=== PATIENT | female | born 1980 | race Caucasian/White ===

== ENCOUNTER 2017-08-25 18:13 | Emergency (ER) | payer BC ==
[2017-08-25 18:42] VITALS: BP 147/80
[2017-08-25] MEDS ORDERED: Ibuprofen TAB* 400 MG PO ONE (20:07)
--- NOTE | 2017-08-25 20:07 | UC ---
Knee Pain HPI - HPI Summary HPI Summary: Pt presents to ED with ongoing, recurrent pain in right knee. Pt with a h/o arthritis in knee. Pt is followed by ortho. Last Penny pt had injection of cortisone and "gel" into knee. Pt states over last 2 days has increased pain in knee. No fever, chills. no erythema. No warmth. No new trauma, fall, or injury. pt states took Motrin 800mg this morning at 8am. Pt has not take any additional analgesia. pt has [place] at home, but has not taken it. Pt has a splint, not wearing. pt has not called orthopedist. pt has an ortho appy on . Pt's medications reviewed this visit - History of Current Complaint Chief Complaint: UCLowerExtremity Stated Complaint: RIGHT LEG PAIN Time Seen by Provider: 08/25/17 19:41 Hx Obtained From: Patient, Medical Records Hx Last Menstrual Period: 08/21/17 ?: No Onset/Duration: Gradual Onset, Lasting Days Pain Intensity: 10 - Allergies/Home Medications Allergies/Adverse Reactions: Allergies Allergy/AdvReac Type Severity Reaction Status Date / Time amoxicillin Allergy Intermediate Rash Verified 08/25/17 18:42 erythromycin base AdvReac Mild GI Upset Verified 08/25/17 18:42 PMH/Surg Hx/FS Hx/Imm Hx - Additional Past Medical History Additional PMH: osteoarthritis Previously Healthy: Yes - Surgical History Surgical History: None - Family History Known Family History: Positive: Hypertension, Diabetes - Social History Lives: With Family - boyfriend Alcohol Use: Occasionally Alcohol Amount: Once per month Substance Use Type: None Smoking Status (MU): Light Every Day Tobacco Smoker Type: Cigarettes Amount Used/How Often: 1/4 ppd Length of Time of Smoking/Using Tobacco: 8 YRS Have You Smoked in the Last Year: Yes Household Exposure Type: Cigarettes Review of Systems Constitutional: Negative Skin: Negative, Other - no erythema, edema Motor: Decreased ROM Neurological: Negative All Other Systems Reviewed And Are Negative: Yes Physical Exam Triage Information Reviewed: Yes Appearance: Well-Appearing, No Pain Distress, Well-Nourished Vital Signs: Initial Vital Signs Temp 97.7 F 08/25/17 18:32 Pulse 79 08/25/17 18:32 Resp 18 08/25/17 18:32 BP 147/80 08/25/17 18:32 Pulse Ox 100 08/25/17 18:32 Vital Signs Reviewed: Yes Eyes: Positive: Conjunctiva Clear ENT: Positive: Hearing grossly normal Neck exam: Normal Neck: Positive: Supple Respiratory Exam: Normal Respiratory: Positive: No respiratory distress, No accessory muscle use Cardiovascular: Positive: Other: - 2+ DP 2+PT Musculoskeletal: Positive: Other: - + SLE + flexion limited at 45 degrees second to pain neg laxity with lateral joint training Pt poorly tolerates anterior/posterior drawer + flex/ext ankle + great toe ext Neurological: Positive: Other: - + gross sensation throughout foot Pt ambulates with slight favoring of RLE Psychological Exam: Normal Skin Exam: Normal Knee Pain Course/Dx - Course Course Of Treatment: Pt presents with ongoing, recurrent pain in right knee. Pt is closely followed by orthopedics for pain. Pt has not maximized analgesia available to her. Pt not wearing splint. reviewed istop. Will check xray for ?joint infusion - pt with recent injection. Will give Motrin. pt declined crutches. recommend f/u with pcp. 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 I repeatedly told patient I have not worked in [employer] and cannot speak to her ability to continue this career. - Differential Dx/Diagnosis Provider Diagnoses: acute exacerbation of chronic knee pain, right Discharge - Sign-Out/Discharge Documenting (check all that apply): Discharge - Discharge Plan Condition: Stable Disposition: HOME Patient Education Materials: Knee Pain (ED) Forms: *Gen. Provider Communication, *Work Release Referrals: BAILEY Costello [Primary Care Provider] - Additional Instructions: - wear ernie wrap or splint as previously prescribed for pain and comfort - Take medications as prescribed for pain. Ibuprofen 800mg every 8 hours and [place] as prescribed. Do NOT drive, operate machinery or drink alcohol while taking [place]. - It is recommended you use crutches to help with pain related to walking - okay to apply ice (wrapped in a towel) 20 minutes at a time, 2-3 times a day for pain - It is strongly recommended you contact your dairy nutrition specialist tomorrow. Keep your appointment with your dairy nutrition specialist on unless they advise you to come sooner - Billing Disposition and Condition Condition: STABLE Disposition: HOME
--- NOTE | 2017-08-25 21:36 | RAD ---
INDICATION: Chronic right knee pain exacerbated after joint injection COMPARISON: Most recent comparison radiograph is dated March 11, 2016 TECHNIQUE: 4 view radiograph of the right knee. FINDINGS: The visualized bones are well-corticated and properly aligned. Degenerative changes of the right knee include medial greater than lateral joint space narrowing and sclerotic change at the medial tibial plateau. There is marginal osteophyte formation. Narrowing of the patellofemoral joint is seen in the lateral view with superior greater than inferior osteophyte formation. Narrowing and lateral osteophyte formation is apparent on the sunrise view. A small suprapatellar joint effusion is noted. There is no acute fracture, dislocation or other focal bony abnormality. IMPRESSION: Degenerative changes as described above worse when compared to the 10th and 16 the radiograph as well as a small suprapatellar joint effusion. If the patient's symptoms persist, follow-up imaging is recommended.
== END 2017-08-25 21:16 | disposition home or self-care (01) ==
LOC: UCCORT 18:13
DX: M79.604 Pain in right leg (principal); Z88.1 Allergy status to other antibiotic agents; Z88.0 Allergy status to penicillin; F17.210 Nicotine dependence, cigarettes, uncomplicated
CPT/HCPCS: 99212; A9270-GY; G0463

== ENCOUNTER 2019-09-18 14:37 | Emergency (ER) | payer SELFPAY ==
[2019-09-18 14:56] VITALS: BP 105/76
--- NOTE | 2019-09-18 14:56 | UC ---
Complaint Female HPI - HPI Summary HPI Summary: 38yo female presenting with urinary frequency "for the last few days." Not urinary incontinence x3. Also states symptoms worsening and had chills intermittently for last 36hours. Denies dysuria and hematuria. Notes low back aching. Denies known fevers. Denies n/v/d and abdominal pain. Does note fatigue and decreased appetite. States she thinks she might have a UTI and has been increasing fluids to help it resolve. She adds that she currently has "a fibroid the size of a baseball that has caused incontinence in the past but never this frequently." - History Of Current Complaint Stated Complaint: WEAKNESS Hx Obtained From: Patient Hx Last Menstrual Period: 09/03/19 Pain Intensity: 6 Pain Scale Used: 0-10 Numeric - Allergies/Home Medications Allergies/Adverse Reactions: Allergies Allergy/AdvReac Type Severity Reaction Status Date / Time amoxicillin Allergy Intermediate Rash Verified 09/18/19 14:49 erythromycin base AdvReac Mild GI Upset Verified 09/18/19 14:49 Home Medications: Home Medications Cholecalciferol TAB* [Vitamin D TAB*] 1,000 unit PO DAILY 02/12/13 [History Confirmed 09/18/19] HYDROcodone/ACETAMIN 5-325 MG* [[place]mit 5-325 TAB*] 1 tab PO BID PRN MDD 2 [History Confirmed 09/18/19] levETIRAcetam [Keppra-] 750 mg PO BID 12/17/18 [History Confirmed 09/18/19] Acetaminophen [Acetaminophen Extra Strength] 1,000 mg PO DAILY 09/18/19 [ History Confirmed 09/18/19] Cephalexin CAP* [Keflex CAP*] 500 mg PO QID #28 cap 09/18/19 [Rx] Gabapentin CAP(*) [Neurontin 300 CAP(*)] 300 mg PO BEDTIME 09/18/19 [History Confirmed 09/18/19] Glucosamine Sulfate Dipot Chlr [Glucosamine] 1,000 mg PO DAILY 09/18/19 [ History Confirmed 09/18/19] Iron 18 mg PO DAILY 09/18/19 [History Confirmed 09/18/19] Saccharomyces Boulardii [Probiotic] 250 mg PO DAILY 09/18/19 [History Confirmed 09/18/19] PMH/Surg Hx/FS Hx/Imm Hx - Additional Past Medical History Additional PMH: osteoarthritis - Surgical History Surgical History: None - Family History Known Family History: Positive: Hypertension, Diabetes - Social History Alcohol Use: Occasionally Alcohol Amount: One per week Substance Use Type: None Smoking Status (MU): Current Every Day Smoker Type: Cigarettes Amount Used/How Often: 1/4 PPD Length of Time of Smoking/Using Tobacco: 8 YRS Have You Smoked in the Last Year: Yes Household Exposure Type: Cigarettes Review of Systems All Other Systems Reviewed And Are Negative: Yes Constitutional: Positive: Chills, Fatigue. Negative: Fever Respiratory: Positive: Negative Cardiovascular: Positive: Negative Gastrointestinal: Positive: Negative Genitourinary: Positive: Frequency, Other - urinary incontinence x3. Negative: Dysuria, Hematuria Musculoskeletal: Positive: Negative Neurological/Mental Status: Positive: Negative Physical Exam - Summary Physical Exam Summary: Vital Signs Reviewed: Yes A+Ox3, no distress, obese Eyes: Conjunctiva Clear ENT: Hearing grossly normal Neck: Positive: Supple Respiratory: Positive: No respiratory distress, No accessory muscle use + CTA throughout no w/r Cardiovascular: RRR nl s1, s2 no m/r Abd: soft, nt/nd no guarding, no CVA tenderness Musculoskeletal Exam: RODRIGUEZ x 4 without difficulty Neurological: Positive: Alert Psychological: Positive: age appropriate behavior Skin: Positive: no rash, no ecchymosis Vital Signs: Initial Vital Signs Temp 97.9 F 09/18/19 14:55 Pulse 104 09/18/19 14:55 Resp 17 09/18/19 14:55 BP 105/76 09/18/19 14:55 Pulse Ox 100 09/18/19 14:55 Lab Results 09/18/19 09/18/19 Range/Units 14:53 14:55 POC Urine Color Agneiszka POC Urine Clarity Cloudy POC Urine pH 5.0 (5-9) POC Ur Specif Exline 1.020 (1.010-1.030) POC Urine Protein 2+ A (Negative) POC Ur Glucose (UA) Negative (Negative) POC Urine Ketones Trace A (Negative) POC Urine Blood 2+ A (Negative) POC Urine Nitrite Positive A (Negative) POC Urine Bilirubin 1+ A (Negative) POC Urine Urobilinogen 0.2 (Negative) POC U Leukocyte Esteras 2+ A (Negative) POC Ur Test Negative (Negative) Complaint Female Dx - Course Course Of Treatment: UA positive nitrites and leuks. Urine preg negative. I discussed UTI with patient who states she has take keflex in the past for UTIs and prefers that treatment today. I sent a prescription for keflex and instructed to continue with increased fluids and otc analgesics. Instructed to go to ED with any new, worsening, or persistent symptoms. Patient voiced understanding and agreed with treatment plan. - Differential Dx/Diagnosis Provider Diagnosis: UTI (urinary tract infection) Discharge ED - Sign-Out/Discharge Documenting (check all that apply): Patient Departure All imaging exams completed and their final reports reviewed: No Studies - Discharge Plan Condition: Stable Disposition: HOME Prescriptions: Cephalexin CAP* [Keflex CAP*] 500 mg PO QID #28 cap Patient Education Materials: Urinary Tract Infection in Women (ED) Referrals: Linh Kumar PA [Physician [employer]arer] - Additional Instructions: As discussed, take Keflex for treatment of your UTI. Increase your fluid intake. You may take tylenol or ibuprofen as directed. Go to emergency room with any new or worsening symptoms or if symptoms are not improving within 48 hours. - Billing Disposition and Condition Condition: STABLE Disposition: Home
== END 2019-09-18 15:19 | disposition home or self-care (01) ==
LOC: UCCORT 14:37
DX: N39.0 Urinary tract infection, site not specified (principal); Z87.440 Personal history of urinary (tract) infections; Z32.02 Encounter for pregnancy test, result negative; R53.83 Other fatigue; Z88.1 Allergy status to other antibiotic agents; Z88.0 Allergy status to penicillin; F17.210 Nicotine dependence, cigarettes, uncomplicated
CPT/HCPCS: 81003; 84702; 87077; 87086; 87186; 99212; G0463

== ENCOUNTER 2023-10-30 09:39 | Observation (INO) ==
[2023-10-30] MEDS ORDERED: oxyCODONE SR 10 mg TAB ONE (10:39)
[2023-10-30] MEDS ORDERED: Scopolamine 1 mg/72hr PATCH ONE (10:40)
[2023-10-30] MEDS ORDERED: Nitro 2% OINT (Nitroglycerin) 1 INCH/PAK ONE (10:40)
[2023-10-30] MEDS ORDERED: Ondansetron 4 mg VIAL 2 MG/ML 2 ml VIAL ONE (10:40)
[2023-10-30 10:53] LABS: ABS Eosinophils 0.4 10^3/uL (0.0-0.5); ABS Lymphocytes 1.3 10^3/uL (1.0-4.8); ABS Monocytes 0.4 10^3/uL (0.0-0.9); ABS Neutrophils 3.4 10^3/uL (1.5-7.6); ABS Nucleated RBC 0.01 10^3/ul; Anion Gap 9 mmol/L (2-16); Blood Urea Nitrogen 7 mg/dL (6-24); CO2 Carbon Dioxide 24 mmol/L (22-32); Calcium 9.4 mg/dL (8.6-10.3); Chloride 105 mmol/L (101-111); Creatinine, Serum 0.52 mg/dL (0.51-0.95); Eosinophil % 6.9 %; Glucose 102 mg/dL (70-100); Hematocrit 43.5 % (35-45); Hemoglobin 14.6 g/dL (11.5-14.3); Lymphocyte % 23.1 %; Mean Corpuscular Hemoglobin 29.5 pg (27-33); Mean Corpuscular Hgb Conc 33.5 g/dL (31-36); Mean Platelet Volume 8.5 fL (7.5-11.2); Nucleated Red Blood Cells % 0.2 %/100WBC (0.0-0.8); Platelet Count 323 10^3/uL (150-450); Potassium 3.7 mmol/L (3.5-5.0); Red Blood Count 4.95 10^6/uL (3.63-4.92); Red Cell Distribution Width 13.7 % (12-17); Sodium 138 mmol/L (135-145); White Blood Count 5.5 10^3/uL (3.8-11.8); eGFR CKD-EPI 118.2 (>60)
[2023-10-30 10:54] LABS: Activated Partial Thrombo Time 31.1 seconds (26.0-38.0)
[2023-10-30 11:01] LABS: HCG Pregnancy < 0.60 mIU/mL
[2023-10-30] MEDS ORDERED: Clindamycin 900 MG/50 **NS BAG 900 MG/50 ML BAG ONE (11:10)
[2023-10-30] MEDS ORDERED: Midazolam 5 mg/5 ml VIAL 1 mg/ml 5 ml VIAL (5 mg) ONE (11:12)
[2023-10-30] MEDS ORDERED: fentaNYL 250 mcg/5 ml 50 MCG/ML 5 ml VIAL (250 MCG) ONE (11:12)
[2023-10-30] MEDS ORDERED: VERAPAMIL 2.5 MG/ML 2 ML VIAL ** 5 mg/2 ml ONE ×2 (11:13→13:26)
[2023-10-30] MEDS ORDERED: Heparin 1,000 UNIT/ML 10 ml (10,000 UNITS) CATHLAB/DIALYSIS ONE ×2 (11:13→13:26)
[2023-10-30] MEDS ORDERED: Heparin 2 UNITS/ML IVPREMIX 3,000 UNIT/1,500 ML BAG IV ONE (11:14)
[2023-10-30] MEDS ORDERED: nitroGLYCERIN DRIP 25,000 MCG/250 ML BTL ONE (11:14)
[2023-10-30] MEDS ORDERED: Iohexol 350 (CONTRAST) 100 ML PAK IV ONE ×2 (11:14→12:42)
[2023-10-30] MEDS ORDERED: Lidocaine 1% VIAL 10 MG/ML 30 ML VIAL ONE (11:36)
[2023-10-30] MEDS ORDERED: Naloxone 0.4 mg VIAL 0.4 mg/ml 1 ml VIAL IV PUSH PRN (12:05)
[2023-10-30] MEDS ORDERED: Flumazenil 0.5 mg/5 ml 0.1 MG/ML 5 ml VIAL IV PRN (12:05)
[2023-10-30] MEDS ORDERED: HYDROmorphone 0.5 MG/0.5 ML SYRINGE ONE ×2 (13:12→13:33)
[2023-10-30] MEDS ORDERED: Heparin 2 UNITS/ML IVPREMIX 1,000 UNIT/500 ML BAG IV ONE (13:17)
[2023-10-30] MEDS: NS 0.9% 1,000 ML IV SCH (14:15)
[2023-10-30] MEDS: HYDROmorphone 1 MG/1 ML SYRINGE IV PRN ×2 (14:20→17:19)
[2023-10-30] MEDS ORDERED: HYDROmorphone 1 MG/1 ML SYRINGE ONE (14:21)
[2023-10-30] MEDS: fentaNYL 100 mcg/2 ml 50 MCG/ML VIAL IV SLOW PU ONE (15:59)
[2023-10-30] MEDS: Midazolam 10 mg/10 ml VIAL 1 mg/ml 10 ml VIAL (10 mg) IV SLOW PU ONE (15:59)
[2023-10-30] MEDS ORDERED: Prochlorperazine 5 mg/ml 2 ml VIAL (10 mg) IV PRN (17:00)
[2023-10-30] MEDS ORDERED: Polyethylene Glycol 3350 17 GM PACKET PO PRN (17:01)
[2023-10-30] MEDS ORDERED: Senna TAB 8.6 mg TAB PO PRN (17:01)
[2023-10-30] MEDS ORDERED: Magnesium Hydroxide LIQ 30 ML UDC PO PRN (17:01)
[2023-10-30] MEDS: Ondansetron 4 mg VIAL 2 MG/ML 2 ml VIAL IV SCH (19:56)
[2023-10-31] MEDS: HYDROcodone/ACETAMIN 5/325 mg TAB PO PRN (09:21)
[2023-10-31] MEDS: CMCS: Ketorolac 10 mg TAB (NF) PO SCH ×2 (09:23→13:15)
[2023-10-31] MEDS: HYDROmorphone 1 MG/1 ML SYRINGE IV ONE (10:40)
[2023-10-31 13:12] VITALS: BP 147/105
== END 2023-10-31 14:25 | disposition home or self-care (01) ==
LOC: CHICATH 09:39 → SSU 09:39
PROVIDERS: ADMIT Radiology Diagnostic Radiology; ATTEND Hospitalist
PROC: ANG.UFE (2023-10-30 11:15)